=== PATIENT | female | born 2000 | race Caucasian/White ===

== ENCOUNTER 2019-05-25 20:29 | Emergency (ER) | payer OTHER ==
--- NOTE | 2019-05-25 20:35 | PDOC ---
Rapid Medical Evaluation Time Seen by Provider: 05/25/19 20:32 Medical Evaluation: 05/25/19 20:32 HPI: COVID-19 CDC guideline data points: The patient is a healthy 18-year-old female presents with five days of fever. Chief complaint is abdominal pain x 5 days. No vaginal bleeding. LORA 06/24. OB Dr. Hannon. ROS: NEGATIVE: difficulty breathing, shortness of breath, chest pain, lightheadedness, dizziness, nausea, vomiting and diarrhea. Other 12 point ROS reviewed and negative. Exam: General: Tearful. ENT: No rhinorrhea or nasal congestion. Neck: FROM, no midline tenderness. Lungs: Clear to auscultation bilaterally without wheezes, rhonchi or rales. Normal excursion. Patient is able to speak in full sentences. Heart: HR: Regular rhythm, S1-S2 present, no murmurs rubs or gallops. Abdomen: Non-distended. MSK/Extremities: No decrease ROM, No obvious deformities. No obvious cyanosis noted. Neuro: Normal Gait, Cranial Nerves II through XII Grossly Intact. Skin: No obvious rashes, bruising. Color Normal Appearing. Assessment/Plan: COVID risk Also needs eval for 3rd trimester abd pain in ASSESSMENT: Denies recent travel and known Covid exposure. Treatment: Main ED for further evaluation. Discharge Disposition - Diagnosis Abdominal pain during in third trimester - Referrals - Patient Instructions - Post Discharge Activity
[2019-05-25 20:36] VITALS: BMI 30.2
[2019-05-25] MEDS ORDERED: ACETAMINOPHEN 325 MG TABLET (FP) PO ONE (20:54)
--- NOTE | 2019-05-25 20:56 | PDOC ---
Attending Attestation - Resident Resident Name: Tyler Thurston - ED Attending Attestation I have performed the following: I have examined & evaluated the patient, The case was reviewed & discussed with the resident, I agree w/resident's findings & plan - HPI HPI: 05/25/19 21:20 Pt comes with fever, headache and lower abdominal pain She is in her 3rd trimester of ; she has a delivery date of . 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 She is took a tylenol prior to arrival SHe is afebrile here SHe has no cough and no chills and no bodyaches. Slight dysuria - Physicial Exam PE: 05/25/19 21:22 Pt has normal clear lungs heart [id number] O2sat 100% abdomen 3rd trim geavid. minimal flank discomfort; muscular in origin. Pt has pain with palpation; not percussion low abd pain Pt is neurologically intact. - Medical Decision Making 05/25/19 21:23 Pt will have UA and urine culture sent and she will be sent to L&D for eval Pt will be treated empirically for UTI with ceftriaxone Ceftriaxone BID sent to her pharmacy; pt will be sent to L&D; ER is a [facility]. Discharge - Discharge Information Problems reviewed: Yes Clinical Impression/Diagnosis: Abdominal pain during in third trimester Condition: Stable Disposition: HOME - Additional Discharge Information Prescriptions: Cephalexin Monohydrate [Keflex -] 500 mg PO BID #13 capsule - Follow up/Referral Referrals: Yuki Mata [Primary Care Provider] - - Patient Discharge Instructions Additional Instructions: Call [facility] for a follow-up appointment. Return to Labor and Delivery for any of the following: - Regular Contractions - Your water breaks - Vaginal Bleeding - Decreased Movement Any questions or concerns call Labor and Delivery at [phone]. - Post Discharge Activity
[2019-05-25] MEDS ORDERED: CEPHALEXIN MONOHYDRATE 500 MG CAPSULE (UD) PO ONE (20:57)
--- NOTE | 2019-05-25 20:58 | PDOC ---
History of Present Illness - General Chief Complaint: Pain Stated Complaint: FEVER Time Seen by Provider: 05/25/19 20:32 History Source: Patient - History of Present Illness Initial Comments: 05/25/19 21:10 Ms. Collins is a 18 y/o at 3rd trimester (estimated delivery date 06/24) p/w 5 days of abdominal pain, urinary frequency and urgency. She reports 9/10 non- radiating suprapubic pain, denies any vaginal bleeding or discharge. She reports chills, denies any nausea, vomiting, weakness, confusion, cough, sob, or dyspnea. No prior problems in the . No prior surgical hx. 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 Hannon Past History - Past Medical History Allergies/Adverse Reactions: Allergies Allergy/AdvReac Type Severity Reaction Status Date / Time No Known Allergies Allergy Verified 05/25/19 20:34 Home Medications: Ambulatory Orders Cephalexin Monohydrate [Keflex -] 500 mg PO BID #13 capsule 05/25/19 - Psycho Social/Smoking Cessation Hx Smoking History: Never smoked *Physical Exam - Vital Signs Last Vital Signs Temp Pulse Resp BP Pulse Ox 98.4 F 86 20 124/67 100 05/25/19 20:34 05/25/19 20:34 05/25/19 20:34 05/25/19 20:34 05/25/19 20:34 Discharge - Discharge Information Problems reviewed: Yes Clinical Impression/Diagnosis: Abdominal pain during in third trimester Condition: Stable Disposition: HOME - Admission No - Additional Discharge Information Prescriptions: Cephalexin Monohydrate [Keflex -] 500 mg PO BID #13 capsule - Follow up/Referral Referrals: Yuki Mata [Primary Care Provider] - - Patient Discharge Instructions - Post Discharge Activity
[2019-05-25] MEDS ORDERED: CEPHALEXIN MONOHYDRATE 500 MG CAPSULE (UD) ONE ×2 (21:34→21:45)
[2019-05-25 23:24] LABS: URINE APPEARANCE CLOUDY; URINE BILIRUBIN NEGATIVE (NEGATIVE); URINE COLOR YELLOW; URINE GLUCOSE (UA) NEGATIVE (NEGATIVE); URINE KETONE 1+ (NEGATIVE); URINE LEUK ESTERASE 3+ (NEGATIVE); URINE NITRITE NEGATIVE (NEGATIVE); URINE PROTEIN NEGATIVE (NEGATIVE); URINE UROBILINOGEN 0.2 mg/dL (0.2-1.0)
[2019-05-26] MEDS ORDERED: DEXTROSE 5%-LACTATED RINGERS 1,000 ML IV ONE ×2 (00:05)
[2019-05-26 03:50] VITALS: BP 101/61; PULSE 79
[2019-05-26 03:55] VITALS: TEMP 97.5
== END 2019-05-26 02:20 | disposition home or self-care (01) ==
LOC: JER 20:29
DX: O26.899 Other specified pregnancy related conditions, unspecified trimester (principal); R10.84 Generalized abdominal pain; Z3A.00 Weeks of gestation of pregnancy not specified
CPT/HCPCS: 81003; 87086; 87186; 99284-25

== ENCOUNTER 2021-08-25 20:55 | Emergency (ER) | payer OTHER ==
[2021-08-25 21:16] VITALS: BP 119/80; PULSE 68; TEMP 97.8; BMI 26.4
[2021-08-25] MEDS ORDERED: IBUPROFEN 600 MG TABLET (FP) PO ONE (23:41)
[2021-08-25] MEDS ORDERED: diazePAM 5 MG TABLET PO ONE (23:41)
[2021-08-26] MEDS ORDERED: diazePAM 5 MG TABLET ONE (00:21)
[2021-08-26] MEDS ORDERED: IBUPROFEN 600 MG TABLET (FP) PO ONE (00:21)
== END 2021-08-26 02:47 | disposition home or self-care (01) ==
LOC: JERFT 20:55 → JER 20:55 → JERFT 08-26 02:47
DX: M54.50 Low back pain, unspecified (principal); M54.2 Cervicalgia; V49.50XA Passenger injured in collision with unspecified motor vehicles in traffic accident, initial encounter
CPT/HCPCS: 72100-TC-FY; 72126-TC; 84703; 99285-25

== ENCOUNTER 2021-10-05 18:47 | Emergency (ER) | payer OTHER ==
[2021-10-05 18:57] VITALS: BP 119/69; PULSE 86; RESP 18; TEMP 98.6; BMI 26.4
[2021-10-05] MEDS ORDERED: IBUPROFEN 600 MG TABLET (FP) PO ONE (20:48)
== END 2021-10-05 21:20 | disposition home or self-care (01) ==
LOC: JERFT 18:47 → JER 18:47 → JERFT 21:20
DX: S93.402A Sprain of unspecified ligament of left ankle, initial encounter (principal); X50.9XXA Other and unspecified overexertion or strenuous movements or postures, initial encounter
CPT/HCPCS: 73610-TC-LT-FY; 73630-TC-LT; 99283-25

== ENCOUNTER 2022-03-24 15:14 | Emergency (ER) | payer OTHER ==
[2022-03-24 15:23] VITALS: BP 123/83; PULSE 85; RESP 18; TEMP 99.1; BMI 23.6
[2022-03-24] MEDS ORDERED: ACETAMINOPHEN 500 MG TABLET (FP) PO ONE (16:32)
[2022-03-24] MEDS ORDERED: IBUPROFEN 600 MG TABLET (FP) PO ONE ×2 (16:32→16:33)
[2022-03-24] MEDS ORDERED: ACETAMINOPHEN 500 MG TABLET (FP) ONE (16:34)
[2022-03-24 16:51] LABS: BASO % 0.5 % (0-2.0); HEMATOCRIT 43.9 % (32.4-45.2); HEMOGLOBIN 14.4 GM/dL (10.7-15.3); LYMPH % 36.4 % (8-40); MCH 28.7 pg (25.7-33.7); MCHC 32.9 g/dl (32.0-36.0); MEAN CELL VOLUME 87.1 fl (80-96); MEAN PLT VOLUME 9.3 fl (7.5-11.1); MONO % 6.6 % (3.8-10.2); NEUT % 55.5 % (42.8-82.8); PLATELET COUNT 260 10^3/uL (134-434); RBC 5.04 M/mm3 (3.60-5.2); RDW 13.8 % (11.6-15.6)
[2022-03-24] MEDS ORDERED: CLINDAMYCIN HCL 300 MG CAPSULE PO ONE (20:38)
[2022-03-24] MEDS ORDERED: CLINDAMYCIN HCL 150 MG CAPSULE (FP) ONE (20:43)
== END 2022-03-24 20:49 | disposition home or self-care (01) ==
LOC: JER 15:14 → JERFT 15:14
DX: N61.1 Abscess of the breast and nipple (principal)
CPT/HCPCS: 36415; 76642-TC-LT; 85025; 99284-25

== ENCOUNTER 2022-06-02 21:33 | Emergency (ER) | payer OTHER ==
[2022-06-02 21:44] VITALS: BP 132/89; PULSE 88; RESP 20; TEMP 97.9; BMI 24.5
[2022-06-02] MEDS ORDERED: SODIUM CHLORIDE 0.9% 500 ML INFUS.BAG IV ONE (22:33)
[2022-06-02] MEDS ORDERED: KETOROLAC TROMETHAMINE 30 MG/1 ML VIAL IVPUSH ONE (22:41)
[2022-06-02] MEDS ORDERED: ONDANSETRON 4 MG/2 ML VIAL IVPUSH ONE (22:42)
[2022-06-02] MEDS ORDERED: ONDANSETRON 4 MG/2 ML VIAL ONE (22:43)
[2022-06-02] MEDS ORDERED: KETOROLAC TROMETHAMINE 30 MG/1 ML VIAL ONE (22:43)
[2022-06-02 23:09] LABS: BASO % 0.4 % (0-2.0); EOS % 0.7 % (0-4.5); HEMATOCRIT 39.5 % (32.4-45.2); HEMOGLOBIN 13.3 GM/dL (10.7-15.3); MCH 28.4 pg (25.7-33.7); MCHC 33.7 g/dl (32.0-36.0); MEAN CELL VOLUME 84.1 fl (80-96); MONO % 9.6 % (3.8-10.2); NEUT % 59.3 % (42.8-82.8); PLATELET COUNT 375 10^3/uL (134-434); RDW 13.9 % (11.6-15.6)
[2022-06-02 23:19] LABS: URINE APPEARANCE CLOUDY; URINE BILIRUBIN NEGATIVE (NEGATIVE); URINE COLOR YELLOW; URINE GLUCOSE (UA) NEGATIVE (NEGATIVE); URINE KETONE TRACE (NEGATIVE); URINE LEUK ESTERASE NEGATIVE (NEGATIVE); URINE NITRITE NEGATIVE (NEGATIVE); URINE PROTEIN TRACE (NEGATIVE)
[2022-06-02 23:22] LABS: HCG,QUALITATIVE URINE Negative
[2022-06-02 23:37] LABS: CALCIUM 9.5 mg/dL (8.5-10.1)
[2022-06-02 23:38] LABS: ALBUMIN 3.8 g/dl (3.4-5.0)
[2022-06-02 23:41] LABS: CREATININE 0.7 mg/dL (0.55-1.3)
[2022-06-02 23:42] LABS: BILIRUBIN,TOTAL 0.3 mg/dL (0.2-1); TOT PROT 8.2 g/dl (6.4-8.2)
[2022-06-03] MEDS ORDERED: AZITHROMYCIN 500 MG TABLET PO ONE (01:52)
[2022-06-03] MEDS ORDERED: AZITHROMYCIN 250 MG TABLET ONE (02:27)
== END 2022-06-03 02:32 | disposition home or self-care (01) ==
LOC: JERFT 21:33
PROC: 3E0333Z Introduction of Anti-inflammatory into Peripheral Vein, Percutaneous Approach (ICD-10-PCS; principal; 2022-06-02)
PROC: 3E033NZ Introduction of Analgesics, Hypnotics, Sedatives into Peripheral Vein, Percutaneous Approach (ICD-10-PCS; 2022-06-02)
DX: R05.1 Acute cough (principal); R07.9 Chest pain, unspecified
CPT/HCPCS: 0241U-QW; 36415; 71046-TC-FY; 71275-TC; 80053; 81003; 84703; 85025; 85379; 99284-25